=== PATIENT | male | born 1980 | race Caucasian/White ===

== ENCOUNTER → 2020-05-10 | Emergency (ER) | payer MEDICAID ==
[~2020-05-10] VITALS: Ht 182.9 cm; Wt 99.5 kg
[~2020-05-10] MED LIST: FAMO-128 PO
== END | disposition home or self-care (01) ==
LOC: ER 12:00
DX: R43.8 Other disturbances of smell and taste (principal); Z20.828 Contact with and (suspected) exposure to other viral communicable diseases; Z79.899 Other long term (current) drug therapy
CPT/HCPCS: 36415; 87635; 99283